=== PATIENT | male | born 1965 | race Caucasian/White ===

== ENCOUNTER 2025-02-03 20:44 | Emergency (ER) | payer MEDICARE, SELFPAY ==
--- OUTSIDE RECORDS SUMMARY | 2008-06-08 04:30 | XMS_ITS | Continuity of Care Document ---
Author Organization [facility] Address [address] [place] [address] utive [facility] [address] [place] [address] Phone Care Team Providers Care Facilities Operations Technician Name Role Phone Jon Campbell Unavailable Unavailable Procedures Procedure Date Eye Exam & Treatment Refraction Dilated Retinal Exam W Interpretation De Office/outpatient Visit, [facility] Advance Directives Directive Yes / No Effective Date File Name No Information Encounters Encounter Description Practice Location Reason(s) For Visit Diagnoses Date Provider Providers Copied on Encounter [facility], [id number] [place] [address] [address], [place], [place], [id number], tel:[phone] SEC [facility] No Information 3-200 8 Shannan Webb. [facility] [address], [place], [place], [facility], . tel:[phone] Referring Provider: Hazel Morrow [facility] [address], [place], [place], [facility]. tel:[phone] Office/outpat ient Visit, [facility], [address] [place] [address] [address], [place], [place], [id number], tel:[phone] SEC [facility] No Information 9-200 7 Mcarthur OD David. [address] [facility] , [address], [place], [place], [facility], [place]. tel:[phone] Referring Provider: Hazel Morrow [facility] 206, [place], [place], [facility]. tel:[phone] Family History Family Member Type Diagnosis Age At Onset No Information Payers Payer name Insurance type Covered democrat ID Authoriza tion(s) [place] [id number] Social History Type Description Quantity Date Captured Comments Sex Male Smoking Status No Information Chief Complaint And Reason For Visit No Information Reason For Referral Reason For Referral No Information History Of Present Illness Encounter Date Complaint History Of Prese nt Illness No Information Functional Status Date Functional Assessmen t No Information Instructions Date Instruction Additional Infor mation No Information Assessments Type Assessment Date No Information Patient Care Teams Name Effective Dates (start - stop) Status Members No Information
[2025-02-03 20:52] VITALS: BP 159/104; PULSE 125; RESP 24; TEMP 36.6; O2SAT 99
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
--- OUTSIDE RECORDS SUMMARY | 2025-02-03 21:47 | XMS_ITS | Clinical Summary ---
Author Organization [facility] Address [address] [place] [address] Care Team Providers Care Hospitality Director Name Role Phone Leroy Alarcon Primary Care Provider + Allergies No known active allergies Medications baclofen 10 MG tablet Take 10 mg by mouth 3 (three) times daily. Active metFORMIN 850 MG tablet Take 850 mg by mouth 2 (two) times daily with meals. Active amitriptyline 50 MG tablet Take 50 mg by mouth nightly at bedtime. Active allopurinol 100 MG tablet Take 300 mg by mouth nightly. Active indomethacin 50 MG capsule Take 50 mg by mouth 3 (three) times daily with meals. Active ezetimibe 10 MG tablet Take 10 mg by mouth daily. Active rosuvastatin 20 MG tablet Take 20 mg by mouth nightly at bedtime. Active losartan 50 MG tablet Take 50 mg by mouth daily. Active hydroCHLOROthia zide 50 MG tablet Take 50 mg by mouth every morning. Active HYDROcodone-tyler taminophen 7.5-325 MG tablet Take 1 tablet by mouth 4 (four) times daily as needed. 2020 Active omeprazole 20 MG capsule Take 20 mg by mouth 2 (two) times a day. Active Social History Tobacco Use Types Packs/Day Years Used Date Smoking Tobacco: Never Smokeless Tobacco: Never Alcohol Use Standard Drinks/Week Comments Not Currently 0 (1 standard drink = 0.6 oz pur e alcohol) Sex and Gender Information Value Date Recorded Sex Assigned at Not on file Legal Sex Male 7:25 PM CDT Gender Identity Not on file Sexual Orientation Not on file Last Filed Vital Signs Vital Sign Reading Time Taken Comments Blood Pressure 135/83 03/14/2020 9:41 AM CDT Pulse 90 03/14/2020 9:41 AM CDT Temperature 36.7 C (98 F) 03/14/2020 6:33 AM CDT Respiratory Rate 16 03/14/2020 9:41 AM CDT Oxygen Saturation 96% 03/14/2020 9:41 AM CDT Inhaled Oxygen Concentration - - Weight 102.1 kg (225 lb) 03/14/2020 6:33 AM CDT Height 167.6 cm (5' 6) 03/14/2020 6:33 AM CDT Body Mass Index 36.32 03/14/2020 6:33 AM CDT Plan of Treatment Health Maintenance Due Date Last Done Comments Colorectal Cancer Screening Colonoscopy (10 Years) 1967 Annual Physical 1970 Hepatitis C 1985 DTaP, Tdap and Td Vaccines ( 1 - Tdap) 1986 Hepatitis B Vaccines (1 of 3 - 19+ 3-dose series) 1986 Pneumococcal Vaccine: 50+ Ye ars (1 of 1 - PCV) 2017 Zoster Vaccines (1 of 2) 2017 COVID-19 Vaccine (2023-2 5 season) 2024 Meningococcal B Vaccine Aged Out No l onger eligible based on patient's age to complete this topic Meningococcal Vaccine Aged Out No flakita farrah eligible based on patient's age to complete this topic RSV Immunizations Under 20 Months Aged Out No longer eligible based on patient's age to complete this topic Medical Devices Implanted Type Area Pattern Data Operator Device Identifier Shelf Expiration Date Model / Serial / Lot Iol [employer] Zcboo - [id number] Implanted:Qty: 1 on 03/14/2020 by Murphy More MD at [facility] Lens Right: Eye [employer] 04/03/2023 [id number] / / [id number] Insurance Care Teams Hospitality Director Relationship Specialty Start Date End Date Leroy Alarcon PA PCP - General PHYSICIAN ASE MASTER MECHANIC 03/07/20
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
[2025-02-03 21:52] VITALS: BP 144/107; PULSE 125; RESP 20; O2SAT 97
[2025-02-03] MEDS: HYDROmorphone HCL INJ (*CRX) 1 MG/ML SYR IM (21:55)
[2025-02-03] MEDS: MUPIROCIN 2% OINT 22 GM TUBE 1 APPLIC TOPICAL (22:03)
[2025-02-03 22:38] VITALS: PULSE 115; O2SAT 97
== END 2025-02-03 22:53 | disposition home or self-care (01) ==
LOC: ANHED 21:45
PROVIDERS: Emergency Provider Physician Assistant; PCP Physician Assistant
DX: T24.202A Burn of second degree of unspecified site of left lower limb, except ankle and foot, initial encounter (principal); T24.201A Burn of second degree of unspecified site of right lower limb, except ankle and foot, initial encounter; T23.241A Burn of second degree of multiple right fingers (nail), including thumb, initial encounter; T23.221A Burn of second degree of single right finger (nail) except thumb, initial encounter; T31.0 Burns involving less than 10% of body surface; X06.2XXA Exposure to ignition of other clothing and apparel, initial encounter; X03.8XXA Other exposure to controlled fire, not in building or structure, initial encounter
CPT/HCPCS: 16020; 99283; A9270; J1171

== ENCOUNTER 2025-02-14 19:08 | Emergency (ER) | payer MEDICARE, SELFPAY ==
--- OUTSIDE RECORDS SUMMARY | 2008-06-08 04:30 | XMS_ITS | Continuity of Care Document ---
Author Organization [facility] Address [address] [place] [address] utive [facility] [address] [place] [address] Phone Care Team Providers Care Pig Sticker Name Role Phone oJn Campbell Unavailable Unavailable Procedures Procedure Date Eye Exam & Treatment Refraction Dilated Retinal Exam W Interpretation De Office/outpatient Visit, [facility] Advance Directives Directive Yes / No Effective Date File Name No Information Encounters Encounter Description Practice Location Reason(s) For Visit Diagnoses Date Provider Providers Copied on Encounter [facility], [address] [place] [address] [address], [place], [place], [id number], tel:[phone] SEC [facility] No Information 3-200 8 Shannan Webb. [facility] [address], [place], [place], [facility], . tel:[phone] Referring Provider: Hazel Morrow [facility] 206, [place], [place], [facility]. tel:[phone] Office/outpat ient Visit, [facility], [address] [place] [address] [address], [place], [place], [id number], tel:[phone] [facility] No Information 9-200 7 Mcarthur OD David. [address] [facility] , [address], [place], [place], [facility], [place]. tel:[phone] Referring Provider: Hazel Morrow [facility] 206, [place], [place], [facility]. tel:[phone] Family History Family Member Type Diagnosis Age At Onset No Information Payers Payer name Insurance type Covered libertarian ID Authoriza tion(s) [place] [id number] Social History Type Description Quantity Date Captured [...]
--- OUTSIDE RECORDS SUMMARY | 2008-06-08 04:30 | XMS_ITS | Continuity of Care Document ---
Author Organization [facility] Address [address] [place] [address] utive [address] [place] [address] Phone Care Team Providers Care Dixonac Operator Name Role Phone Jon Campbell Unavailable Unavailable Procedures Procedure Date Eye Exam & Treatment Refraction Dilated Retinal Exam W Interpretation De Office/outpatient Visit, [facility] Advance Directives Directive Yes / No Effective Date File Name No Information Encounters Encounter Description Practice Location Reason(s) For Visit Diagnoses Date Provider Providers Copied on Encounter [facility], [address] [place] [address] [address], [place], [place], [id number], tel:[phone] SEC [facility] No Information 3-200 8 Shannan Webb. [facility] [address], [place], [place], [facility], . tel:[phone] Referring Provider: Hazel Morrow [facility] 206, [place], [place], [facility]. tel:[phone] Office/outpat ient Visit, [facility], [address] [place] [address] [address], [place], [place], [id number], tel:[phone] SEC [facility] No Information 9-200 7 Mcarthur OD David. [address] [facility] , [address], [place], [place], [facility], [place]. tel:[phone] Referring Provider: Hazel Morrow [facility] 206, [place], [facility]. tel:[phone] Family History Family Member Type Diagnosis Age At Onset No Information Payers Payer name Insurance type Covered libertarian ID Authoriza tion(s) [place] [id number] Social History Type Description Quantity Date Captured [...]
[2025-02-14 19:09] VITALS: BP 153/92; PULSE 101; RESP 16; TEMP 36.6; O2SAT 97
--- OUTSIDE RECORDS SUMMARY | 2025-02-14 19:10 | XMS_ITS | Encounter Summary ---
Author Organization [facility] Address [address] [place] [address] Care Team Providers Care Cell Builder Name Role Phone Leroy Alarcon Primary Care Provider + Encounter Details Date Type Department Care Team (Late st Contact Info) Description 03/09/2020 Prep for Procedure [facility] [address] [place] [address] Murphy More MD [address] [facility] [address] [place] [address] Social History Tobacco Use Types Packs/Day Years Used Date Smoking Tobacco: Never Smokeless Tobacco: Never Alcohol Use Standard Drinks/Week Comments Not Currently 0 (1 standard drink = 0.6 oz pur e alcohol) Sex and Gender Information Value Date Recorded Sex Assigned at Not on file Legal Sex Male 7:25 PM CDT Gender Identity Not on file Sexual Orientation Not on file COVID-19 Exposure Response Date Recorded In the last month, have you been in contact with someone who was confirmed or suspected to have Coronavirus / COVID-19? No / Unsure 03/11/2020 10:26 AM CDT documented as of this encounter Plan of Treatment Not on file documented as of this encounter Results * PRE-SURGICAL/PRE-PROCEDURE CORONAVIRUS (COVID 19) (03/11/2020 10:31 AM CDT) CORONAVIRUS SARS COV 2 PCR (RESP) NOT DETECTED NOT DETECTED 03/13/2020 9:45 AM CDT [facility] Comment: A Not Detected (negative) test result for this test means that SARS- CoV-2 RNA was not present in the specimen above the limit of detection. A negative result does not rule out the possibility of COVID-19 and should not be used as the sole basis for treatment or patient management decisions. If COVID-19 is still suspected, based on exposure history together with other clinical findings, re-testing should be considered in consultation with public health authorities. Laboratory test results should always be considered in the context of clinical observations and epidemiological data in making a final diagnosis and patient management decisions. Please review the Fact Sheets and FDA authorized labeling available for health care providers and patients using the following websites: https://www.[employer] [facility]/home/Covid-19/HCP/NAAT/fact-sheet2 https://www.[employer] [facility]/home/Covid-19/Patients/NAAT/ fact-sheet2 This test has been authorized by the FDA under an Emergency Use Authorization (EUA) for use by authorized laboratories. Due to the current public health emergency, [facility] is receiving a high volume of samples from a wide variety of swabs and media for COVID-19 testing. In order to serve patients during this public health crisis, samples from appropriate clinical sources are being tested. Negative test results derived from specimens received in non-commercially manufactured viral collection and transport media, or in media and sample collection kits not yet authorized by FDA for COVID-19 testing should be cautiously evaluated and the patient potentially subjected to extra precautions such as additional clinical monitoring, including collection of an additional specimen. Methodology: Nucleic Acid Amplification Test (NAAT) includes PCR or TMA Additional information about COVID-19 can be found at the [facility] website: www.[employer]/Covid19. Test performed at [facility] [address] [address] [place] [address] Director: RAFFAELE PABLO DO,MPH FIRST TEST YES 03/11/2020 10:29 AM T [facility] EMPLOYED IN HEALTHCARE NO 03/11/2020 10:29 AM T [facility] SYMPTOMATIC DEFINED BY CDC NO 03/11/2020 10:29 AM T [facility] DATE OF SYMPTOM ONSET NON-APPLICABLE 03/11/2020 2:34 PM CDT [facility] HOSPITALIZATION STATUS NO 03/11/2020 10:29 AM CDT [facility] PATIENT IN ICU NO 03/11/2020 10:29 AM CDT [facility] RESIDENT OF CONGREGATE CARE NO 03/11/2020 10:29 AM CDT [facility] NO 03/11/2020 2:34 PM CDT [facility] PATIENT'S RACE WHITE OR 03/11/2020 10:29 AM CDT [facility] ETHNICITY NONHISPANIC 03/11/2020 10:29 AM CDT [facility] SOURCE (QST) NASOPHARYNGEAL SWAB 03/11/2020 10:29 AM CDT [facility] NASOPHARYNGEAL SWAB / Unknown 03/11/2020 10:31 AM CDT us Murphy More MD MICROBIOLOGY - GENERAL [facility]A [facility] Final Result [facility] [address] [place] [address], [place] [address], documented in this encounter Visit Diagnoses Diagnosis Preop testing- Primary Preoperative examination, unspecified documented in this encounter Additional Health Concerns Infection Onset Date Last Indicated Resolved Time COVID-19 Rule Out 03/11/2020 03/11/2020 03/13/2020 9:46 AM CDT documented as of this encounter Care Teams Cell Builder Relationship Specialty Start Date End Date Leroy Alarcon PA PCP - General PHYSICIAN PRODUCTION UNDERWRITER 03/07/20 documented as of this encounter
--- OUTSIDE RECORDS SUMMARY | 2025-02-14 19:10 | XMS_ITS | Clinical Summary ---
Author Organization [facility] Address [address] [place] [address] Care Team Providers Care Geochemist Name Role Phone Leroy Alarcon Primary Care Provider + Source Comments [facility],non-owned Affiliates and Associated Physician Practices is amultiple site organization consisting of ambulatory clinics and hospital sitesin [place], [place], [place] and [place]. This disclosure is being madepursuant to the Care Everywhere program and may not contain all information available regarding this patient. 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 Gender Identity Not on file Sexual Orientation [...] this topic Medical Devices Implanted Type Area Database Modeler Device Identifier Shelf Expiration Date Model / Serial / Lot Nail Im 10mm 36cm Versanail Fem Tmx Unv Implanted:Qty: 1 on 10/16/2021 by Iker Miranda MD at [facility] Left: Leg [employer] 03/27/2022 1813-10-360 / / [id number] 4.5mm Solid Cortical Screw Full Thread, 42mm Implanted:Qty: 1 on 10/16/2021 by Iker Miranda MD at [facility] Left: [employer] [id number] / / 6.5mm Solid Cortical Screw, Full Thread, 55mm Implanted:Qty: 1 on 10/16/2021 by Iker Miranda MD at [facility] Left: [employer] [id number] / / Gd Pin Orth 14in 3.2mm Long St Versanail Implanted:Qty: 1 on 10/16/2021 by Iker Miranda MD at [facility] Left: Leg [employer] [id number] / / Procedures Procedure Name Priority Date/Time Associated Diagnosis Comments GLUCOSE - POINT OF CARE Routine 10/18/2021 11:38 AM CDT from Last 3 Months or Most Recently Relevant to Health Maintenance Results * (ABNORMAL) GLUCOSE - POINT OF CARE (10/18/2021 11:38 AM CDT) Glucose WB/POC 199(H) 70 - 115 mg/dL 10/18/2021 11:54 AM CDT [facility] Specimen Type Cap Fingerstick 2021 11:54 AM CDT [facility] Blood BLOOD SPECIMEN / Unknown 10/18/2021 11:38 AM CDT 10/18/2021 11:54 AM CDT Iker Miranda MD LAB - POINT OF CARE ORDERABLES Final Result [facility] [address] [place] [address], [facility] [phone] from Last 3 Months or Most Recently Relevant to Health Maintenance Insurance [id number] MANAGED MEDICARE ADV MANAGED MEDICARE ADV Advance Directives * Full Code (Latest Code Status on File) Date Activated Date Inactivated Comments 10/17/2021 2:32 AM 10/18/2021 4:09 PM Care Teams Geochemist Relationship Specialty Start Date End Date Leroy Alarcon PA [address] [place], [place] [phone] PCP - General Physician Heating And Ventilating Drafter 10/16/21
--- OUTSIDE RECORDS SUMMARY | 2025-02-14 19:10 | XMS_ITS | Clinical Summary ---
Author Organization [facility] Address [address] [place] [address] Care Team Providers Care Erp Pm Name Role Phone Leroy Alarcon Primary Care [...] this topic Medical Devices Implanted Type Area Amortization Clerk Device Identifier Shelf Expiration Date Model / Serial / Lot Iol [employer] Zcboo - [id number] Implanted:Qty: 1 on 03/14/2020 by Murphy More MD at [facility] Lens Right: Eye [employer] 04/03/2023 [id number] / / [id number] Insurance Care Teams Erp Pm Relationship Specialty Start Date End Date Leroy Alarcon PA PCP - General PHYSICIAN TIER AND DETONATOR 03/07/20
[2025-02-14 21:34] VITALS: BP 114/88; PULSE 95; RESP 18; TEMP 36.9; O2SAT 97
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
--- OUTSIDE RECORDS SUMMARY | 2025-02-15 00:26 | XMS_ITS | Clinical Summary ---
Author Organization [facility] Address [address] [facility] [address] [place] [address] Care Team Providers Care Dealer Card Room Name Role Phone Leroy Alarcon Primary Care Provider + Source Comments [facility],non-owned Affiliates and Associated Physician Practices is amultiple site organization consisting of ambulatory clinics and hospital sitesin [place], [place], [place] and [place]. This disclosure is being madepursuant to the Care Everywhere program and may not contain all information available regarding this patient. 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 Gender Identity Not on file Sexual Orientation [...] this topic Medical Devices Implanted Type Area Developmental Services Worker Device Identifier Shelf Expiration Date Model / Serial / Lot Nail Im 10mm 36cm Versanail Fem Tmx Unv Implanted:Qty: 1 on 10/16/2021 by Iker Miranda MD at [facility] Left: Leg [employer] 03/27/2022 1813-10-360 / / [id number] 4.5mm Solid Cortical Screw Full Thread, 42mm Implanted:Qty: 1 on 10/16/2021 by Iker Miranda MD at [facility] Left: [employer] [id number] / / 6.5mm Solid Cortical Screw, Full Thread, 55mm Implanted:Qty: 1 on 10/16/2021 by Iker Miranda MD at [facility] Left: [employer] [id number] / / Gd Pin Orth 14in 3.2mm Long St Versanail Implanted:Qty: 1 on 10/16/2021 by Iker Miranda MD at [facility] Left: Leg [employer] [id number] / / Procedures Procedure Name Priority Date/Time Associated Diagnosis Comments GLUCOSE - POINT OF CARE Routine 10/18/2021 11:38 AM CDT from Last 3 Months or Most Recently Relevant to Health Maintenance Results * (ABNORMAL) GLUCOSE - POINT OF CARE (10/18/2021 11:38 AM CDT) Glucose WB/POC 199(H) 70 - 115 mg/dL 10/18/2021 11:54 AM CDT [facility] Specimen Type Cap Fingerstick 2021 11:54 AM CDT [facility] Blood BLOOD SPECIMEN / Unknown 10/18/2021 11:38 AM CDT 10/18/2021 11:54 AM CDT Iker Miranda MD LAB - POINT OF CARE ORDERABLES Final Result [facility] [address] [place] [address], [facility] [phone] from Last 3 Months or Most Recently Relevant to Health Maintenance Insurance [id number] MANAGED MEDICARE ADV MANAGED MEDICARE ADV Advance Directives * Full Code (Latest Code Status on File) Date Activated Date Inactivated Comments 10/17/2021 2:32 AM 10/18/2021 4:09 PM Care Teams Dealer Card Room Relationship Specialty Start Date End Date Leroy Alarcon PA [address] [place], [place] [phone] PCP - General Physician Marketing Planner 10/16/21
--- OUTSIDE RECORDS SUMMARY | 2025-02-15 00:26 | XMS_ITS | Clinical Summary ---
Author Organization [facility] Address [address] [place] [address] Care Team Providers Care Design Drafter Chief Name Role Phone Leroy Alarcon Primary Care [...] this topic Medical Devices Implanted Type Area Appraiser Irrigation Tax Device Identifier Shelf Expiration Date Model / Serial / Lot Iol [employer] Zcboo - [id number] Implanted:Qty: 1 on 03/14/2020 by Murphy More MD at [facility] Lens Right: Eye [employer] 04/03/2023 [id number] / / [id number] Insurance Care Teams Design Drafter Chief Relationship Specialty Start Date End Date Leroy Alarcon PA PCP - General PHYSICIAN ASSESSMENT EXPERT 03/07/20
[2025-02-15] MEDS: HYDROmorphone HCL INJ (*CRX) 1 MG/ML SYR IM (00:51)
== END 2025-02-15 01:43 | disposition home or self-care (01) ==
PROVIDERS: Emergency Provider Emergency Medicine; PCP Physician Assistant
DX: T24.232A Burn of second degree of left lower leg, initial encounter (principal); X58.XXXA Exposure to other specified factors, initial encounter
CPT/HCPCS: 16020; 99283; A9270; J1171

== ENCOUNTER 2025-04-05 10:58 | Outpatient (CLI) | payer MEDICARE, SELFPAY ==
[2025-04-05 13:07] LABS: Hemoglobin A1C 6.5 % (<5.7)
--- OUTSIDE RECORDS SUMMARY | 2025-04-05 13:13 | XMS_ITS | Clinical Summary ---
Author Organization [facility] Address [address] [place] [address] Care Team Providers Care State Appellate Clerk Name Role Phone Leroy Alarcon Primary Care Provider + Source Comments [facility],non-owned Affiliates and Associated Physician Practices is amultiple site organization consisting of ambulatory clinics and hospital sitesin [place], [place] and [place]. This disclosure is being madepursuant to the Care Everywhere program and may not contain all information available regarding this patient. 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 Gender Identity Not on file Sexual Orientation [...] 2017 ZOSTER VACCINE (1 of 2) 2017 DEPRESSION SCREENING 06/17/2024 SCREENING FOR DIABETES 10/18/2024 2, 10/18/2021, 10/18/2021, Additional history exists COVID-19 VACCINE ( - 2024- season) 2025 07/18/2021, 10/11/2020, 09/13/2020 INFLUENZA VACCINE (#1) 2025 , 04/15/2020, 04/13/2019, Additional history exists HIB VACCINE [...] this topic Medical Devices Implanted Type Area Armature Bander Device Identifier Shelf Expiration Date Model / Serial / Lot Nail Im 10mm 36cm Versanail Fem Tmx Unv Implanted:Qty: 1 on 10/16/2021 by Iker Miranda MD at [facility] Left: Leg [employer] 03/27/2022 1813-10-360 / / [id number] 4.5mm Solid Cortical Screw Full Thread, 42mm Implanted:Qty: 1 on 10/16/2021 by Iker Miranda MD at [facility] Left: [employer] [id number] / / 6.5mm Solid Cortical Screw, Full Thread, 55mm Implanted:Qty: 1 on 10/16/2021 by Iker Miranda MD at [facility] Left: [employer] [id number] / / Gd Pin Orth 14in 3.2mm Long St Versanail Implanted:Qty: 1 on 10/16/2021 by Iker Miranda MD at [facility] Left: Leg [employer] [id number] / / Procedures Procedure Name Priority Date/Time Associated Diagnosis Comments GLUCOSE - POINT OF CARE Routine 10/18/2021 11:38 AM CDT from Last 3 Months or Most Recently Relevant to Health Maintenance Results * (ABNORMAL) GLUCOSE - POINT OF CARE (10/18/2021 11:38 AM CDT) Glucose WB/POC 199(H) 70 - 115 mg/dL 10/18/2021 11:54 AM CDT [facility] Specimen Type Cap Fingerstick 2021 11:54 AM CDT [facility] Blood BLOOD SPECIMEN / Unknown 10/18/2021 11:38 AM CDT 10/18/2021 11:54 AM CDT Iker Miranda MD LAB - POINT OF CARE ORDERABLES Final Result [facility] [address] [place] [address], [facility] [phone] from Last 3 Months or Most Recently Relevant to Health Maintenance Insurance [id number] MANAG[facility]ICARE ADV MANAGED MEDICARE ADV Advance Directives * Full Code (Latest Code Status on File) Date Activated Date Inactivated Comments 10/17/2021 2:32 AM 10/18/2021 4:09 PM Care Teams State Appellate Clerk Relationship Specialty Start Date End Date Leroy Alarcon PA [address] [place], [place] [phone] PCP - General Physician Vegetable Specker 10/16/21
[2025-04-05 13:17] LABS: Hematocrit 40.8 % (42.0-52.0); Hemoglobin 13.5 g/dL (14.0-18.0); Immature Granulocyte Percent A 0.9 % (0-0.5); Lymphocytes Absolute Auto 1.69 K/mm3 (0.9-3.2); Mean Corpuscular HGB Conc 33.1 g/dl (32-36); Mean Corpuscular Hemoglobin 30.1 pg (26-34); Mean Corpuscular Volume 91.1 fl (80-100); Nucleated Red Blood Cells Absolute Auto 0.000 K/mm3 (0.0-0.012); Nucleated Red Blood Cells Perc 0.0 % (0.0-0.2); Platelet Count Result 297 k/mm3 (150-375); Red Blood Count 4.48 M/mm3 (4.6-6.20); White Blood Count 8.6 K/mm3 (4.5-10.0)
[2025-04-05 13:23] LABS: Alanine Aminotransferase 32 U/L (6-50); Albumin Level 4.6 g/dL (3.5-5.1); Alkaline Phosphatase 52 U/L (38-126); Anion Gap 11 mmol/L (4-12); Aspartate Amino Transferase 31 U/L (17-59); Bilirubin,Total 0.4 mg/dL (0.2-1.3); Blood Urea Nitrogen 12 mg/dL (9-20); Calcium 8.9 mg/dL (8.4-10.2); Carbon Dioxide 22 mmol/L (22-30); Chloride 101 mmol/L (98-107); Cholesterol 268 mg/dL (0-200); Estimated Glomerular Filt Rate > 60; Glucose 179 mg/dL (65-110); HDL Direct 69 mg/dL; Potassium 4.2 mmol/L (3.4-5.0); Sodium 134 mmol/L (137-145); Total Protein 7.9 g/dL (6.3-8.2); Triglycerides 225 mg/dL (<150)
[2025-04-05 14:11] LABS: Prostate Specific Antigen 6.1 ng/mL (< OR = 4.0); Thyroid Stimulating Hormone 1.770 uIU/mL (0.465-4.680)
== END 2025-04-05 10:59 | disposition home or self-care (01) ==
PROVIDERS: PCP Physician Assistant; Visit Provider Physician Assistant
DX: E78.5 Hyperlipidemia, unspecified (principal); G57.91 Unspecified mononeuropathy of right lower limb; Z12.5 Encounter for screening for malignant neoplasm of prostate; G89.29 Other chronic pain; F11.90 Opioid use, unspecified, uncomplicated; Z79.899 Other long term (current) drug therapy; Z12.11 Encounter for screening for malignant neoplasm of colon; F51.05 Insomnia due to other mental disorder; K21.9 Gastro-esophageal reflux disease without esophagitis; E11.9 Type 2 diabetes mellitus without complications; M96.840 Postprocedural hematoma of a musculoskeletal structure following a musculoskeletal system procedure; B35.1 Tinea unguium; Z00.00 Encounter for general adult medical examination without abnormal findings
CPT/HCPCS: 36415; 80053; 80061; 83036; 84153; 84443; 85025

== ENCOUNTER 2025-05-28 10:33 | Outpatient (CLI) | payer MEDICARE, SELFPAY ==
[2025-05-28 11:28] LABS: Add Urine Microscopic? YES; Appearance Urine Clear (Clear); Glucose Urine UA Trace mg/dL (Negative); Leukocyte Esterase Ur Trace LEU/UL (Negative); Nitrate Urine Negative (Negative); Non Pathogenic Casts 0-2; Specific Grav Ur 1.008 (1.001-1.035)
[2025-05-28 12:06] LABS: Free T4 Free Thyroxine 0.90 ng/dL (0.78-2.19)
[2025-05-28 12:19] LABS: Thyroid Stimulating Hormone 0.896 uIU/mL (0.465-4.680)
[2025-06-03 20:07] LABS: Testosterone, Total, LC/MS 243 ng/dL (.)
== END 2025-05-28 10:34 | disposition home or self-care (01) ==
PROVIDERS: PCP Physician Assistant; Visit Provider Internal Medicine
DX: G57.91 Unspecified mononeuropathy of right lower limb (principal); E78.5 Hyperlipidemia, unspecified; B35.1 Tinea unguium; Z00.00 Encounter for general adult medical examination without abnormal findings; E11.9 Type 2 diabetes mellitus without complications; K21.9 Gastro-esophageal reflux disease without esophagitis; F51.05 Insomnia due to other mental disorder; Z12.11 Encounter for screening for malignant neoplasm of colon; M96.840 Postprocedural hematoma of a musculoskeletal structure following a musculoskeletal system procedure; F11.90 Opioid use, unspecified, uncomplicated; G89.29 Other chronic pain; Z12.5 Encounter for screening for malignant neoplasm of prostate; Z00.01 Encounter for general adult medical examination with abnormal findings; H66.92 Otitis media, unspecified, left ear; H60.339 Swimmer's ear, unspecified ear; Z79.899 Other long term (current) drug therapy
CPT/HCPCS: 36415; 81001; 84403; 84439; 84443